=== PATIENT | male | born 1980 | race Caucasian/White ===

== ENCOUNTER 2016-06-08 10:51 | Emergency (ER) | payer SELFPAY ==
[2016-06-08 11:02] VITALS: BP 151/98
[2016-06-08] MEDS ORDERED: NORCO 5/325 ONE (11:23)
[2016-06-08] MEDS ORDERED: MOTRIN PO ONE (12:03)
[2016-06-08] MEDS ORDERED: BOOSTRIX IM ONE (12:03)
[2016-06-08] MEDS ORDERED: TRIPLE ANTIBIOTIC TP ONE (12:04)
--- NOTE | 2016-06-08 13:08 | Emergency Department Report ---
Entered by SANDI SOUZA, acting as scribe for DILIP ATKINS PA. - General Chief Complaint: Wound/Laceration Stated Complaint: laceration Time Seen by Provider: 06/08/16 11:12 Source: patient, family Mode of arrival: Ambulatory Limitations: Language Barrier - History of Present Illness Initial Comments: 36 y/o male with no significant PMHx, presents to the ED c/o laceration to the right lateral lower leg that occurred last night at approximately 18:30. The patient was working on some tile while at work, when a piece of sharp tile caused the laceration. Denies LOC and fever. 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 The patient is not up to date on his tetanus (more than 10 years). -: Last night Time: 18:30 Location: other (lateral right lower leg) Extremity Location: Right: Lower Leg (right lateral leg) 1 - right lateral leg Place: work Context: accidental (patient was working on tile when a piece of sharp tile fell on the affected area) Associated Symptoms: pain. denies: loss of feeling/numbness, suspect foreign body present, unable to move injured part Treatments Prior to Arrival: bandage - Related Data Previous Rx's Medication Instructions Recorded Last Taken Type Cephalexin [Keflex] 500 mg PO BID #14 capsule 06/08/16 Unknown Rx Allergies Allergy/AdvReac Type Severity Reaction Status Date / Time No Known Allergies Allergy Unverified 06/08/16 11:02 ED Review of Systems Comment: All other systems reviewed and negative Constitutional: denies: fever Musculoskeletal: other (laceration to the right lateral lower leg) Skin: other (laceration to the right lateral lower leg) Neurological: denies: other (LOC) ED Past Medical Hx - Past Medical History Previous Medical History?: No - Surgical History Past Surgical History?: No - Social History Smoking Status: Never Smoker Substance Use Type: None - Medications Home Medications: Home Medications Medication Instructions Recorded Confirmed Last Taken Type Cephalexin [Keflex] 500 mg PO BID #14 capsule 06/08/16 Unknown Rx ED Physical Exam - General Limitations: Language Barrier General appearance: alert, in no apparent distress - Head Head exam: Present: atraumatic, normocephalic - Eye Eye exam: Present: normal appearance. Absent: scleral icterus, conjunctival injection - ENT ENT exam: Present: normal external ear exam - Neck Neck exam: Present: normal inspection, full ROM. Absent: tenderness - Extremities Exam Extremities exam: Present: full ROM, other (4 cm V-shaped laceration to the right lateral distal alvarez, no active bleeding from site) - Back Exam Back exam: Present: normal inspection, full ROM. Absent: CVA tenderness (R), CVA tenderness (L) - Neurological Exam Neurological exam: Present: alert, oriented X3, normal gait - Psychiatric Psychiatric exam: Present: normal affect, normal mood - Skin Skin exam: Present: warm, dry, other (4 cm V-shaped laceration to the right lateral distal alvarez, no active bleeding. Appears clean and dry) - Other Other exam information: General: Well appearing, well nourished, in no distress. Oriented x 3, normal mood and affect . Ambulating without difficulty. Skin: Good turgor, no rash, unusual bruising or prominent lesions. Noted is a 4 cm V-shaped laceration to the right lateral distal alvarez, no active bleeding. Appears clean and dry with no signs of infection. Hair: Normal texture and distribution. Nails: Normal color, no deformities HEENT: Head: Normocephalic, atraumatic, no visible or palpable masses, depressions, or scaring. Eyes: Visual acuity intact, conjunctiva clear, sclera non-icteric, EOM intact Ears: nl external appearance, hearing intact. ED Course Vital Signs 06/08/16 06/08/16 10:58 12:15 Temperature 98.3 F Pulse Rate 74 Respiratory 22 18 Rate Blood Pressure 151/98 O2 Sat by Pulse 99 Oximetry - Laceration /Wound Repair Right lateral distal alvarez Wound Location: lower extremity (right lateral distal alvarez) Wound Length (cm): 4 (V-shaped) Wound Explored: clean Betadine Prep?: Yes Anesthesia: Lidocaine w/ Epi Wound Repaired With: sutures Suture Size/Type: 4:0, proline Number of Sutures: 5 (patient tolerated procedure well) Layer Closure?: Yes (moderate wound closure achieved) ED Medical Decision Making - Medical Decision Making A/P: Laceration right lower extremity 1-tetanus updated today 2-5 Prolene 4-0 sutures placed, skin loosely approximated. I probed area with forceps no palpable object within laceration 3- minimal to no bleeding no signs of infection currently 4-Keflex twice a day 500 mg 7 days, Motrin when necessary for pain, triple antibiotic ointment to area. I instructed patient on wound care. I advised him to return to the ED if he experiences any pus drainage erythema worsen the pain signs of infection 5- patient to return to the ED in approximately 10 days for suture removal. ED Disposition Clinical Impression: Laceration of right lower leg Qualifiers: Encounter type: initial encounter Qualified Code(s): S81.811A - Laceration without foreign body, right lower leg, initial encounter Disposition: DISCHARGED TO HOME OR SELFCARE Is pt being admited?: No Does the pt Need Aspirin: No Condition: Stable Instructions: Laceration (ED), Suture Care (ED), Puncture Wound (ED), Acute Wound Care (ED) Additional Instructions: I advised patient to return to the ED in approximately 10 days for suture removal or sooner if he experiences any signs of infection Prescriptions: Cephalexin [Keflex] 500 mg PO BID #14 capsule Referrals: [facility] [Provider Group] - 3-5 Days [facility] [Outside] - 3-5 Days This documentation as recorded by the HARLEY han GRACE,accurately reflects the service I personally performed and the decisions made by ,DILIP ATKINS PA.
== END 2016-06-08 13:15 | disposition home or self-care (01) ==
LOC: ED 10:51
DX: S81.811A Laceration without foreign body, right lower leg, initial encounter (principal); W45.8XXA Other foreign body or object entering through skin, initial encounter; Y93.9 Activity, unspecified; Y92.9 Unspecified place or not applicable; Y99.9 Unspecified external cause status
CPT/HCPCS: 90471; 90715; 99282; A6250